=== PATIENT | female | born 2005 | race African-American/Black ===

== ENCOUNTER 2024-03-21 21:01 | Emergency (ER) | payer MEDICAID ==
[~2024-03-21] VITALS: Ht 157.5 cm; Wt 59.0 kg
[2024-03-21 21:09] VITALS: O2SAT 99
[2024-03-21] MEDS: KETOROLAC 30MG/ML VIAL IV STA (22:06)
[2024-03-21] MEDS: METOCLOPRAMIDE HCL 10MG/2ML VIAL IV ONE (22:07)
[2024-03-21] MEDS ORDERED: TOPUD PO (23:18)
[2024-03-21 23:20] VITALS: BP 120/68; PULSE 77; RESP 16; TEMP 36.66960; O2SAT 100
== END 2024-03-21 23:25 | disposition home or self-care (01) ==
LOC: ER 21:01
DX: U07.1 COVID-19 (principal)
CPT/HCPCS: 71045; 96374; 96375; 99284; 87426; J1885; J2765; Z7610 ×2